=== PATIENT | male | born 1985 | race Caucasian/White ===

== ENCOUNTER 2017-07-23 15:15 | Emergency (ER) | payer OTHER ==
--- NOTE | 2017-07-23 15:53 | RAD ---
LEFT ANKLE RADIOGRAPHS THREE VIEWS 07/23/17 PROVIDED CLINICAL HISTORY: Left ankle pain status post injury. FINDINGS: There is no evidence for fracture or other acute osseous abnormality. If there is persistent clinical concern, conservative management and followup imaging are advised. IMPRESSION: As above. POS: [facility]
[2017-07-23] MEDS ORDERED: HYDROcodone/Acetaminophen 10/325 mg Tablet ONE (16:06)
[2017-07-23] MEDS ORDERED: HYDROcodone/Acetaminophen 5/325 mg Tablet ONE (16:12)
== END 2017-07-23 16:18 | disposition home or self-care (01) ==
LOC: SCSER 15:15
DX: S93.402A Sprain of unspecified ligament of left ankle, initial encounter (principal); W17.89XA Other fall from one level to another, initial encounter

== ENCOUNTER 2020-10-29 09:10 | Emergency (ER) | payer OTHER ==
[2020-10-29] MEDS ORDERED: Azithromycin 250 MG TAB ONE (12:08)
[2020-10-29 12:35] LABS: #Lymphocytes 1.5 thou/uL (1.20-3.40); #Monocytes 0.3 thou/uL (0.11-0.59); %Basophils 0.3 % (0.0-1.0); %Eosinophils 0.2 % (0.0-10.0); %Lymphocytes 39.5 % (21.0-51.0); %Monocytes 8.7 % (0.0-10.0); %Neutrophils 51.4 % (42.0-75.0); Hemoglobin 13.7 g/dL (14.0-18.0); Mean Corpuscular Hemoglobin 30.2 pg (27.0-31.0); Mean Corpuscular Volume 89.1 fL (78.0-98.0); Mean Platelet Volume 7.9 fL (7.4-10.4); Platelet Count 214 thou/uL (130-400); RBC Distribution Width 11.6 % (11.5-14.5); Red Blood Cell (RBC) Count 4.52 mill/uL (4.70-6.10); White Blood Cell (WBC) Count 3.8 thou/uL (4.8-10.8)
[2020-10-29 12:53] LABS: ALT (SGPT) 42 U/L (8-55); AST (SGOT) 40 U/L (5-34); Albumin 3.9 g/dL (3.5-5.0); Alkaline Phosphatase 67 U/L (40-110); Anion Gap 18 mmol/L (10-20); BUN (Urea Nitrogen) 10 mg/dL (8.9-20.6); Bilirubin, Total 0.5 mg/dL (0.2-1.2); Calc. Creatinine Clearance 0 mL/min (70-130); Carbon Dioxide 23 mmol/L (22-29); Chloride 102 mmol/L (98-107); Globulin 3.6 g/dL (2.4-3.5); Glucose 89 mg/dL (70-105); Potassium 4.1 mmol/L (3.5-5.1); Protein, Total 7.5 g/dL (6.0-8.3); Sodium 139 mmol/L (136-145)
== END 2020-10-29 12:28 | disposition home or self-care (01) ==
LOC: ERS 09:10
DX: U07.1 COVID-19 (principal); J12.82 Pneumonia due to coronavirus disease 2019
CPT/HCPCS: 36415; 71045; 80053; 84484; 85025